=== PATIENT | female | born 1950 | race Caucasian/White ===

== ENCOUNTER 2017-01-23 07:53 | Inpatient (IN) | payer OTHER, MEDICARE ==
[2017-01-23] VITALS (9 sets, daily range): BP systolic 113–138; BP diastolic 63–91; PULSE 47–103; RESP 18–20; O2SAT 96–97
[~2017-01-23] VITALS: Ht 160 cm; Wt 112.5 kg
[~2017-01-23 07:53] MED LIST: ACET-171 PO; BECL8.7A5 INHALATION; DICL100G8 TOPICAL; EFLO30CR2 TP; ESTR1TAB24 PO; FLUO10TA PO; FLUT9.9S NS; FUR20 PO; GUAI600T2 PO; LORA10CA PO; PANT40TA2 PO; POTA10TA12 PO; RANI150C4 PO; SOTA80TA PO; WARF2.5T82 PO; WARF5TAB7 PO
--- NOTE | 2017-01-23 08:15 | NUR ---
Admission note Pt arrived to room 2021 at about 0810. Pt admission fro Tikosyn loading. Pt oriented to room, use of call light. Policies and procedure explained. Pt verbalized understanding. Pt alert and oriented x3. Tele Showing Afib 80-110s. Assessment performed. Awaiting orders from laminating machine tender.
[2017-01-23] MEDS ORDERED: Alum-Mag Hydrox-Simeth 30 mL Suspension PO PRN (08:50)
[2017-01-23] MEDS ORDERED: Polyethylene Glycol (PEG) 17 Gm Powder PO PRN (08:50)
[2017-01-23 09:12] LABS: INR 2.8 ratio
[2017-01-23] MEDS ORDERED: FLUT16SP NASAL (09:19)
[2017-01-23] MEDS ORDERED: RANI300T4 PO (09:19)
[2017-01-23] MEDS ORDERED: WARF2.5T PO (09:19)
[2017-01-23] MEDS ORDERED: WARF5TAB PO (09:19)
[2017-01-23] MEDS ORDERED: POTA10CA42 PO (09:19)
[2017-01-23] MEDS ORDERED: METO-272 PO (09:19)
[2017-01-23] MEDS ORDERED: PANT40TA3 PO (09:19)
[2017-01-23] MEDS ORDERED: guaiFENesin 600 mg ER12 Tablet PO SCH (09:35)
[2017-01-23] MEDS ORDERED: [UNRECOGNIZED DRUG - OTHER] TOPICAL PRN (10:10)
--- NOTE | 2017-01-23 13:30 | NUR ---
Converted to Sbrady pt given Tikosyn at about 1100, ekg ordered for 1300. Made aware by Teletech that pt converted to Sbrady 40-50s at about 1301. Pt assessed, pt denied dizziness or feeling faint. Garrett Rand paged, awaiting call. Ongoing care.
[2017-01-23] MEDS ORDERED: MeTOProlol XL 50 mg ER24 Tablet PO SCH (20:30)
[2017-01-23] MEDS: Fluticasone 0.05% 15 Spray/2 Gm 16 Gm Nasal Spray NASAL SCH (21:39)
[2017-01-23] MEDS: Fluticasone 250 mCg Inhaler INHALATION SCH (21:39)
[2017-01-24 03:55] VITALS: BP 116/64; PULSE 47; RESP 16; O2SAT 97
--- NOTE | 2017-01-24 05:20 | NUR ---
Tele Patient remains in SB, other VSS. Occasional PACs and up to 5 beat runs of SVT that patient is asymptomatic of. HS Tikosyn dose given. EKG shows QTc of 491, previous EKG shows QTc of 414. Patient denies any chest discomfort or shortness of breath. Continue to monitor.
--- NOTE | 2017-01-24 06:50 | PCM.CONPHA ---
Subjective Date of Service: Jan 23, 2017 Warfarin dosing Reason for Pharmacy Consult: Anticoagulation Management Assessment/Plan Assessment/Plan Indication: Afib Home Dose: 2.5mg Mo,Fr 5mg AOD Anticoagulation Trends: INR 2.8 INR change Warf Dose 2.5mg GOAL INR: 2-3 Summary: INR is therapeutic on admit, continue home dose and monitor. Pharmacy will continue to follow daily. Thank you for consulting pharmacy in the care of this patient. Fernando Reyes Jan 24, 2017 06:50
[2017-01-24 07:39] VITALS: BP 126/64; PULSE 49; RESP 16; O2SAT 97
[2017-01-24] MEDS: Fluticasone 250 mCg Inhaler INHALATION SCH ×2 (07:59→20:37)
[2017-01-24] MEDS: Pantoprazole 40 mg ER24 Tablet PO SCH (07:59)
[2017-01-24] MEDS ORDERED: MeTOProlol XL 50 mg ER24 Tablet PO SCH ×2 (08:30→09:30)
[2017-01-24 08:51] LABS: INR 2.83 ratio
--- NOTE | 2017-01-24 10:24 | PCM.PHAPRO ---
Progress Date of Service: Jan 24, 2017 Warfarin dosing A/ INR is stable at 2.83 and therapeutic. P/ Continue with home dosing regimen of warfarin, which seems stable, with 5mg being given today. Fernando Reyes Jan 24, 2017 10:24
--- NOTE | 2017-01-24 10:50 | PROG NOTE ---
[address] [address] PROGRESS NOTE PATIENT: ALEX OLIVARES : 1950 MR#: [id number] ADMIT: 01/23/2017 JOB ID: [id number] DATE: 01/23/2017 CHIEF COMPLAINT: "I feel much better in general, and no longer have the odd chest wall pain since conversion to normal rhythm." SUBJECTIVE: The patient is a very pleasant, 66-year-old woman, that was admitted yesterday to start antiarrhythmic therapy for atrial fibrillation with dofetilide. Two hours after the first dose of dofetilide, she spontaneously converted to a sinus bradycardia at 49 BPM. She was immediately aware of the change and felt the chest wall and left breast discomfort resolve, and was able to breathe better. She had some headache last night, but is not certain whether this is associated with dofetilide. She has no headache this morning and feels quite well in general. She has no complaints at present. OBJECTIVE: The 12-lead ECG two hours after the first dose of Tikosyn showed sinus bradycardia at 49 BPM with a QT of 458 msec and a QTc of 414 msec. After the second dose of Tikosyn last evening, her 12-lead ECG two hours later showed rate 57 BPM with a QT of 504 msec and a QTc of 491 msec. Blood work this morning shows a PT of 30.9, and INR of 2.83. PHYSICAL EXAM: Breath sounds are full and clear in all inman, pulse is regular, with normal S1, S2, and no murmurs. Bowel sounds are active. Extremities are with good color and without edema. ASSESSMENT: The patient was started on dofetilide 500 mcg q.12 h., and converted to sinus rhythm after the first dose. She is having no perceptible side effects from dofetilide, other than possible headache which has currently resolved. She denies any other signs or symptoms of side effects. PLAN: With the QT interval now up around 500 msec, we will reduce the dofetilide to 250 mcg q.12 h., starting this morning. Also will discontinue metoprolol which was started last week for rate control during atrial fibrillation. Her last dose of metoprolol was about 36 hours ago. It will be stopped now. We would expect her to be discharged tomorrow around noon, and no cardioversion will be needed.
--- NOTE | 2017-01-24 10:54 | HP ---
[address] [address] HISTORY AND PHYSICAL PATIENT: ALEX OLIVARES : 1950 MR#: [id number] ADMIT: 01/23/2017 JOB ID: [id number] REASON FOR ADMISSION: To start new antiarrhythmic therapy with dofetilide for treatment of atrial fibrillation. CHIEF COMPLAINT: Rapid palpitations, fatigue and lightheadedness. HISTORY: The patient is a pleasant 66-year-old woman with preserved biventricular function who has been dealing with atrial fibrillation for several years now. She has had two previous atrial fibrillation ablation procedures yet still has persistent atrial fibrillation. She was initially treated with propafenone but this was eventually ineffective and she was switched to sotalol, which seemed to work for a while but in recent months has been ineffective and she has had prolonged periods of atrial fibrillation. She has also been cardioverted on sotalol but reverted into atrial fibrillation in December 2016, and had quite a rapid ventricular response rate requiring metoprolol for rate control. She needs to be transitioned to another antiarrhythmic drug until we find one that is effective. PAST MEDICAL HISTORY: Significant in her past medical history is sleep apnea, left superior pulmonary vein ostial stenosis, obesity, history of cholecystitis, history of colon polyps and history of anemia. FAMILY HISTORY: Mother had heart failure and father had kidney failure and bipolar disorder. SOCIAL HISTORY: The patient is and lives with her in a new home in [place], and she works full-time as an environmental health specialist. MEDICATION ALLERGIES: CODEINE causes hives. MEDICATIONS PRIOR TO ADMISSION: 1. Estrace 1 mg daily. 2. Flonase nasal spray 2 sprays each day in each nostril. 3. Lasix 20 mg daily. 4. Loratadine 10 mg daily. 5. Mucinex 600 mg daily as needed. 6. Potassium chloride 10 mEq daily. 7. Protonix 40 mg daily. 8. Prozac 10 mg has been discontinued. 9. Qvar 80 mcg 1 puff 2 times daily as needed. 10. Ranitidine 300 mg daily. 11. Sotalol was discontinued a week ago. 12. Tessalon Perles 100 mg 3 times every day. 13. Tylenol Extra Strength as needed. 14. Vaniqa topical cream 2 times every day to the affected area. 15. Voltaren 1% topical gel 4 times daily to affected areas. 16. Warfarin 5 mg 5 days per week and 2.5 mg 2 days per week. 17. Xopenex aerosol inhaler 2 puffs every 6 hours as needed. 18. Metoprolol succinate 50 mg b.i.d. REVIEW OF SYSTEMS: Constitutional: Fatigue and exertional shortness of breath. Cardiac: Positive for rapid and irregular rhythm and atypical chest discomfort. Respiratory: Positive for exertional dyspnea. Positive for sleep apnea. Respiratory: No dyspnea at rest. Eyes: No visual changes. : No hematuria. Endocrine: No polydipsia. Musculoskeletal: No particular weakness. Neuro: No dizziness. No ataxia. Skin: No rash. Psychiatric: No anxiety. Musculoskeletal: No pain or disability. PHYSICAL EXAMINATION: She is alert and well oriented. An obese middle-aged woman in no distress. Vital signs: BP 130/80, pulse 103 and irregular, respirations 20 per minute, pulse oximetry 97% on room air. HEENT: Head normocephalic, eyes normal movements and pupillary reflexes. Mouth, good dentition. Neck: Supple, faint carotid pulses, no bruits. No thyromegaly. No JVD. Chest exam: Breath sounds are full and clear in all inman, no rales. Cardiac exam: Rapid and irregularly irregular rhythm without murmurs. Abdomen is obese and nontender. Peripheral exam: No edema. No cyanosis. She is neurologically intact with good muscle control and balance, and moves all four extremities normally. LABORATORY DATA ON ADMISSION: Serum chemistry includes potassium 4.4, BUN 10, creatinine 0.66, estimated GFR 128 and magnesium 2.1. Her INR is 2.80. IMPRESSION: The patient has been symptomatic with atrial fibrillation for some years and has undergone previous medical therapies with propafenone and sotalol without good success. She has also had two atrial fibrillation pulmonary antrum isolation procedures for atrial fibrillation. In atrial fibrillation, she is having a rapid rhythm and is symptomatic with palpitations, fatigue, exertional dyspnea, and atypical left chest wall and breast pain. Her rate is much better controlled with metoprolol 50 mg b.i.d., which was added last week and gave her some relief. PLAN: The patient will be started on dofetilide 500 mcg q.12 h. and have 12-lead ECGs recorded two hours after each dose to monitor for prolonged QT interval. Her baseline ECG showed atrial fibrillation with an average ventricular rate of 112 per minute and a QT of 339 and QTc 463 msec. If she does not convert spontaneously, will likely plan a cardioversion on the third day.
[2017-01-24 11:06] VITALS: PULSE 59
--- NOTE | 2017-01-24 11:31 | NUR ---
Social Work Note: Initial Assessment Data& Assessment: EMR reviewed. SW met with pt at bedside to discuss discharge planning, SW role explained. Emily Daly is a 66 year old female admitted on 01/23/2017 for atrial fibrillation. Pt has [employer] and Medicare insurance coverage. Pt sees Greg Herzog MD for primary care. Pt lives in [place] with her significant other and is independent at baseline. Pt does not use any DME at home and does not have SNF or HH hx. Pt does not have LTC insurance or VA benefits. Pt lives in a one story home with no steps. Pt drives. Pt has DPOA/Advance Directive paperwork completed, SW requested a copy when possible. Pt significant other will be transporting pt home when medically ready. Pt denies any other needs. No other discharge needs identified. Plan: Anticipated discharge home via POV when medically ready. Pt significant other will be transporting pt home when medically ready. Pt denies any other needs. No other discharge needs identified. SUSAN Bah Addendum: 01/24/17 at 1138 by DANIEL PETTIT Amended: Links added.
[2017-01-24 11:55] VITALS: BP 123/64; PULSE 49; RESP 16; O2SAT 96
[2017-01-24 16:11] VITALS: BP 126/62; PULSE 59; RESP 16; O2SAT 98
--- NOTE | 2017-01-24 18:01 | NUR ---
Tele/Tikosyn Tele SB in the 40s, per front desk monitor no PSVT today. Metoprolol d/c'd by Garrett Rand PA-C. Tikosyn dose decreased by Dr. Newell to 250mcg, administered per orders. Pt denies CP/dizziness/palpitations.
[2017-01-24 20:35] VITALS: BP 116/61; PULSE 56; RESP 18; O2SAT 98
[2017-01-24] MEDS: Fluticasone 0.05% 15 Spray/2 Gm 16 Gm Nasal Spray NASAL SCH (20:37)
[2017-01-25 01:08] VITALS: BP 140/78; PULSE 55; RESP 16; O2SAT 97
[2017-01-25 04:04] VITALS: PULSE 51
[2017-01-25 04:34] VITALS: BP 110/73; PULSE 51; RESP 16; O2SAT 97
[2017-01-25 04:53] LABS: INR 2.6 ratio
--- NOTE | 2017-01-25 05:30 | NUR ---
Telemetry Pt afib 40s-70s throughout shift; pt had run of approx. 7-second SVT with HR in 170s; pt reports feeling symptomatic, but had spontaneous resolution. Pt also had tachycardia in 120s for several minutes later in the shift; also symptomatic but with spontaneous resolution. Pt reports these episodes are common at home and "never last more than a few minutes." No other incidents this shift. Pt denies any pain or lightheadedness. VSS.
[2017-01-25] MEDS: Pantoprazole 40 mg ER24 Tablet PO SCH (09:17)
[2017-01-25] MEDS: Fluticasone 250 mCg Inhaler INHALATION SCH (09:29)
[2017-01-25 09:32] VITALS: BP 136/65; PULSE 58; RESP 20; O2SAT 96
--- NOTE | 2017-01-25 09:53 | PCM.CONPHA ---
Subjective Date of Service: Jan 25, 2017 Warfarin dosing Reason for Pharmacy Consult: Anticoagulation Management Objective Vital Signs Date Time Temp Pulse Resp B/P Pulse Ox O2 Delivery O2 Flow Rate FiO2 01/25/17 09:32 36.5 58 20 136/65 96 Room Air 01/25/17 04:34 36.5 51 16 110/73 97 Room Air 01/25/17 04:04 51 01/25/17 01:08 36.6 55 16 140/78 97 Room Air 01/24/17 20:35 36.6 56 18 116/61 98 Room Air 01/24/17 16:11 36.6 59 16 126/62 98 Room Air 01/24/17 11:55 36.5 49 16 123/64 96 Room Air 01/24/17 11:06 59 Intake and Output 01/23/17 01/24/17 01/25/17 00:00 00:00 00:00 Intake Total 700 ml 2000 ml Output Total 650 ml 3025 ml Balance 50 ml -1025 ml Weight (Kilograms): 112.500 Height (Feet): 5 Height (Inches): 3.00 Test 01/23/17 08:40 01/25/17 04:00 Sodium Level 135mEq/L (134-144) Potassium Level 4.4mEq/L (3.5-5.2) Chloride Level 101mEq/L (97-108) Carbon Dioxide Level 20mmol/L (18-29) Blood Urea Nitrogen 10mg/dL (8-27) Creatinine 0.66mg/dL (0.57-1.00) Estimat Glomerular Filtration Rate 128mL/min (>59) Glucose Level 96mg/dL (60-99) Calcium Level 8.7mg/dL (8.5-10.1) Magnesium Level 2.1mg/dL (1.6-2.6) Hold Rudd Top Tube Received (Received) Prothrombin Time 28.4sec (8.1-12.5) Prothromb Time International Ratio 2.60ratio Assessment/Plan Assessment/Plan Assessment: * Patient is needing warfarin management for atrial fibrillation. * Patient received the home dose of warfarin 5 mg on 01/24/17 after the INR was stable at 2.83. * Patient's INR goal range: 2-3 * Patient's INR on 01/25/17: 2.6 * The INR dropped slightly, but the INR is still in the goal range. Plan: * Since the INR is within the goal range, the patient will be continued on their home warfarin dose with warfarin 5 mg on 01/25/17 at 1700. * Will continue to follow. Nabor Ram Jan 25, 2017 09:53
[2017-01-25 11:19] VITALS: PULSE 58
[2017-01-25 11:52] VITALS: BP 116/63; PULSE 57; RESP 16; O2SAT 95
--- NOTE | 2017-01-25 12:17 | PCM.DIMED ---
Discharge Instructions Date of Service Jan 25, 2017 Dates of Hospitalization Jan 23, 2017 at 07:53 Discharge Diagnosis Discharge Diagnosis Persistent Atrial Fibrillation Sleep Apnea Diet Heart Healthy Activity No restrictions Call your provider Other (Fainting or near fainting) Patient Instructions Mid-level Provider (F9): Garrett Rand PA-C Follow-up with Mid-level in: 6 weeks Garrett Rand PA-C Jan 25, 2017 12:17
[2017-01-25] MEDS ORDERED: DOFE0.25 PO (12:19)
--- NOTE | 2017-01-25 13:24 | DIS ---
[address] [address] DISCHARGE SUMMARY PATIENT: ALEX OLIVARES : 1950 MR#: [id number] ADMIT: 01/23/2017 JOB ID: [id number] DIS: 01/25/2017 REASON FOR ADMISSION: To start new antiarrhythmic therapy for atrial fibrillation with dofetilide. CHIEF COMPLAINT: Palpitations and fatigue. BRIEF HISTORY: The patient is a pleasant 66-year-old woman with atrial fibrillation which has become persistent and recurrent despite treatment with propafenone and later with sotalol. She has also had two previous atrial fibrillation ablation procedures. She was admitted for new medical therapy with dofetilide. Last week she had atrial fib with rapid response and was placed on metoprolol succinate 50 mg b.i.d. with good rate control that helped with symptoms remarkably. COURSE IN HOSPITAL: The patient was admitted to the [facility] and after baseline ECG and lab data was obtained, she was started on dofetilide 500 mcg b.i.d., with 12 lead ECGs recorded two hours after each dose. Interestingly, two hours after the first dose of dofetilide, she converted from atrial fibrillation to sinus bradycardia. She maintained a sinus rhythm throughout the hospitalization. Her QT intervals did prolonged with the 500 mcg dose so the dofetilide was reduced to 250 mcg q.12 hours and the QT interval returned to a normal value. She felt well on the medication and had no side effects. DISPOSITION: The patient was discharged home in good condition with a follow up appointment at the [facility] Cardiology office in six weeks. She has no activity restrictions and was asked to follow a heart healthy diet. DISCHARGE MEDICATIONS: 1. Dofetilide 250 mcg q.12 hours. 2. Acetaminophen 500 mg q.6 hours p.r.n. fever. 3. QVAR 2 puffs b.i.d. 4. Voltaren gel applied topically as needed. 5. Manqu 30 g topically b.i.d. 6. Estradiol 1 mg daily. 7. Fluticasone 2 nasal sprays q.h.s. 8. Furosemide 20 mg daily. 9. Guaifenesin 600 mg p.r.n. 10. Loratadine 10 mg daily. 11. Pantoprazole 40 mg daily. 12. Potassium chloride 10 mEq daily. 13. Ranitidine 300 mg daily. 14. Warfarin 5 mg five days per week and warfarin 2.5 mg two days per week, or as instructed by her anticoagulation academic coach. 15. Metoprolol has been stopped. FINAL DIAGNOSES: Persistent atrial fibrillation and sleep apnea.
--- NOTE | 2017-01-25 16:39 | NUR ---
Discharge of patient Reviewed discharge instructions with patient and patient's . Patient verbalized understanding. Pt discharge with instructions. Prescription sent to pharmacy. IV and Telemetry previously discontinued. pt left hospital with to home self care. Per pt, follow up in 6weeks with Garrett Rand.
== END 2017-01-25 14:00 | disposition home or self-care (01) | DRG 310 ==
LOC: PCC 07:53
PROVIDERS: ADMIT Internal Medicine Cardiovascular Disease; ATTEND Internal Medicine Cardiovascular Disease
DX: I48.0 Paroxysmal atrial fibrillation (principal); K21.9 Gastro-esophageal reflux disease without esophagitis